=== PATIENT | female | born 1945 | race Caucasian/White ===

== ENCOUNTER 2024-04-27 08:26 | Emergency (ER) | payer MEDICARE ==
[~2024-04-27] VITALS: Ht 165.1 cm; Wt 81.7 kg
[~2024-04-27 08:26] MED LIST: Amoxicillin500 MG PO; IBUP600 PO
[2024-04-27 09:31] LABS: BASOPHILS PERCENT AUTO 1 % (0-2); EOSINOPHILS PERCENT AUTO 1 % (0-6); Hematocrit 36.1 % (33.0-51.0); Hemoglobin 11.6 g/dL (11.5-16.0); IMMATURE GRAN ABSOLUTE AUTO 0.07 K/mm3 (0.00-0.10); IMMATURE GRAN PERCENT AUTO 1 % (0-1); LYMPHOCYTES ABSOLUTE AUTO 1.18 K/mm3 (0.84-5.20); LYMPHOCYTES PERCENT AUTO 11 % (21-46); MONOCYTES ABSOLUTE AUTO 1.12 K/mm3 (0.16-1.47); MONOCYTES PERCENT AUTO 10 % (4-13); Mean Corpuscular HGB 30.7 pg (26.0-34.0); Mean Corpuscular HGB Conc 32.1 g/dL (31.5-36.5); Mean Corpuscular Volume 96 fL (80-100); Mean Platelet Volume 10.4 fL (9.1-12.4); NEUTROPHILS ABSOLUTE AUTO 8.34 K/mm3 (1.96-9.15); NEUTROPHILS PERCENT AUTO 77 % (41-73); Platelet Count 242 K/mm3 (150-400); RDW Coefficient Variation 13.3 % (11.7-14.2); RDW Standard Deviation 47.7 fL (35.1-46.3); Red Blood Cell Count 3.78 M/mm3 (3.80-5.20); White Blood Cell Count 10.91 K/mm3 (4.00-11.30)
[2024-04-27 09:58] LABS: Albumin, Blood 3.7 g/dL (3.4-5.0); Bilirubin, Total 0.5 mg/dL (0.1-1.0); Bun/Creatinine Ratio 36.6 (12.0-20.0); Calcium, Blood 10.1 mg/dL (8.5-10.1); Creatinine, Blood 0.74 mg/dL (0.40-1.00); Globulin, Blood 3.8 g/dL (2.2-4.0); Potassium, Blood 3.8 mmol/L (3.5-5.5); Total Protein, Blood 7.5 g/dL (6.4-8.2)
[2024-04-27] MEDS ORDERED: HYDROcodone 5-APAP 325 TAB PO ONE (10:10)
[2024-04-27] MEDS ORDERED: HYDR1TAB94 PO (10:25)
[2024-04-27 11:45] VITALS: BP 135/78
== END 2024-04-27 11:56 | disposition home or self-care (01) ==
LOC: ER 08:26
PROVIDERS: Student in an Organized Health Care Education/Training Program
DX: S52.181A Other fracture of upper end of right radius, initial encounter for closed fracture (principal); S00.12XA Contusion of left eyelid and periocular area, initial encounter; W18.31XA Fall on same level due to stepping on an object, initial encounter; Z87.891 Personal history of nicotine dependence
CPT/HCPCS: 70450; 73030; 80053; 82550; 85025; 99284-25; A9270

== ENCOUNTER 2024-12-12 22:37 | Emergency (ER) | payer MEDICARE, OTHER ==
[~2024-12-12] VITALS: Ht 162.6 cm; Wt 49.9 kg
[~2024-12-12 22:37] MED LIST changes: +HYDR1TAB94 PO
[2024-12-12 23:19] VITALS: BP 163/99
== END 2024-12-12 23:27 | disposition home or self-care (01) ==
LOC: ER 22:37
DX: Z76.89 Persons encountering health services in other specified circumstances (principal); N39.0 Urinary tract infection, site not specified; Z59.02 Unsheltered homelessness
CPT/HCPCS: 99282